=== PATIENT | female | born 1990 | race Caucasian/White ===

== ENCOUNTER 2017-01-21 17:54 | Emergency (ER) ==
[2017-01-21 19:26] VITALS: BP 120/81
--- NOTE | 2017-01-21 19:28 | PROVIDER DOCUMENTATION ---
HPI-General Adult - General Chief Complaint: Allergic Reaction Time Seen by Provider: 01/21/17 19:12 Source: patient Allergies/Adverse Reactions: Patient Allergies Allergy/AdvReac Type Severity Reaction Status Date / Time No Known Allergies Allergy Verified 01/21/17 19:15 Home Medications: Home Medication List Medication Instructions Recorded Confirmed Last Taken Type Ketorolac [Toradol] 10 mg PO Q6H PRN PRN #10 tablet 01/21/17 Unknown Rx Prednisone 20 mg PO BID #10 tablet 01/21/17 Unknown Rx - History of Present Illness -Gen Adult Nature of Presenting Problems: 26 year old female present to the ER with complaint of allergic reaction to bilateral hands. Pt states she wore gloves at work yesterday and noticed dermatitis to bilateral hands. Location of Pain/Injury: reports: hand(s) Onset/Duration: reports: last night Timing: reports: still present Associated Symptoms: reports: rash Review of Systems - Adult - REVIEW OF SYSTEMS - ADULT Constitutional: denies: chills, fever Eyes: reports: no symptoms reported Ears, Nose, Mouth & Throat: reports: no symptoms reported Cardiovascular: reports: no symptoms reported Respiratory: reports: no symptoms reported Gastrointestinal: reports: no symptoms reported Genitourinary: reports: no symptoms reported Musculoskeletal: reports: no symptoms reported Integumentary: reports: itching, rash Neurological: reports: no symptoms reported Psychiatric: reports: no symptoms reported Endocrine: reports: no symptoms reported Hematologic/Lymphatic: reports: no symptoms reported Allergic/Immunologic: reports: no symptoms reported All Other Systems: Reviewed and Negative Past History - Adult - PAST MEDICAL HISTORY-ADULT Review of Records: reports: Nursing Assessment Review, Medications Reviewed Major Childhood Illnesses: reports: denies history Cardiovascular: reports: denies history Respiratory: reports: denies history Gastrointestinal: reports: denies history Obstetrical/Gynecological: reports: denies history Genitourinary: reports: denies history Musculoskeletal: reports: other (herniated disk ) Neurological: reports: denies history Psychiatric: reports: psychiatric problems Endocrine/Immune: reports: denies history Other Conditions: reports: denies history - PRIOR SURGERIES/PROCEDURES Surgical/Procedure History: reports: hysterectomy, BTL, - IMMUNIZATION STATUS Childhood Immunizations: See Nurse Assessment Flu Vaccine: See Nurse Assessment - FAMILY HISTORY Family History: reviewed, not pertinent Physical Exam-General - CONSTITUTIONAL General Appearance: alert, no apparent distress - EYES Eyes: PERRL/EOMI, pink conjunctivae - HEAD, EARS, NOSE, MOUTH & THROAT HENMT: moist mucous membranes, normal ENT inspection - NECK Neck: supple, normal inspection - RESPIRATORY Respiratory: lungs clear, normal breath sounds - CARDIOVASCULAR Cardiovascular: normal peripheral pulses, regular rate, rhythm - MUSCULOSKELETAL Back Exam: no CVA tenderness, no vertebral tenderness Extremity: non-tender, normal gait - SKIN Integumentary: erythema, rash - NEUROLOGIC Neurologic: grossly normal, no motor/sensory deficits - PSYCHIATRIC Psych/Mental Status: normal mood/affect, normal thought content, normal thought process, oriented x 3 Departure - Departure Time of Disposition Order: 19:28 DIAGNOSIS: Allergic reaction Qualifiers: Encounter type: initial encounter Qualified Code(s): T78.40XA - Allergy, unspecified, initial encounter Disposition: HOME 01 Certified Medical Emergency: Emergent Condition: Stable Additional Instructions: ED Follow Up Instructions: You have been treated by a care provider in the Emergency Department. These instructions are being provided to you so you can have an understanding of how to care for yourself upon discharge. Upon discharge from the Emergency Department, you are responsible for making arrangements for follow-up care by a physician of your choice. Take all prescribed medications as directed. Return to the Emergency Department immediately for any new or worsening symptoms. You may call the Physician Referral phone number at [phone] to obtain a list of Physicians who are taking new patients. Prescriptions: Prednisone 20 mg PO BID #10 tablet Ketorolac [Toradol] 10 mg PO Q6H PRN PRN #10 tablet PRN Reason: Pain Referrals: Flores Canales MD [Primary Care Provider] - Forms: Return to School/Parent Work Instructions: Ketorolac tablets, Prednisone tablets Attestation - Scribe Verification/Attestation Scribe:: Veena Gee Acting as Scribe for:: Alvaro Jackson Scribe documention review:: This chart was documented by a scribe and accurately reflects the service the provider performed and the decisions made by the provider.
== END 2017-01-21 19:34 | disposition home or self-care (01) ==
LOC: P.ED 17:54
DX: T78.40XA Allergy, unspecified, initial encounter (principal); R21 Rash and other nonspecific skin eruption; L29.9 Pruritus, unspecified
CPT/HCPCS: 99282

== ENCOUNTER 2020-02-03 10:57 | Inpatient (IN) ==
--- NOTE | 2020-02-03 11:41 | EKG Report ---
Test Performed on : 02/03/2020 11:26:07 AM Test Reason : SOB Blood Pressure : / mmHG Vent. Rate : 065 BPM Atrial Rate : 065 BPM P-R Int : 138 ms QRS Dur : 102 ms QT Int : 390 ms P-R-T Axes : 022 074 037 degrees QTc Int : 405 ms Normal sinus rhythm. Incomplete right bundle branch block Borderline ECG When compared with ECG of 07-JUL-2009 14:40, No significant change was found Unconfirmed Result
[2020-02-03] MEDS ORDERED: VENTOLIN HFA INH ONE (11:45)
--- NOTE | 2020-02-03 12:14 | PROVIDER DOCUMENTATION ---
This chart was entered by Elba Soni Scribe, acting as scribe for Zaira Sexton CRNP. HPI-Respiratory General - General Chief Complaint: Shortness of Breath Stated Complaint: SOB, FATIGUE Time Seen by Provider: 02/03/20 11:05 Source: patient Allergies/Adverse Reactions: Patient Allergies Allergy/AdvReac Type Severity Reaction Status Date / Time No Known Allergies Allergy Verified 10/11/17 20:39 Home Medications: Home Medication List Medication Instructions Recorded Confirmed Last Taken Type Albuterol Sulfate Inhaler 2 puff INH Q4H PRN PRN #1 inhaler 08/08/17 Unknown Rx [Ventolin Hfa] Ciprofloxacin HCl [Cipro] 500 mg PO BID #20 tablet 08/08/17 Unknown Rx Methylprednisolone [Medrol Dosepak] 4 mg PO DIRECTED #1 package 08/08/17 Unknown Rx Cephalexin [Keflex] 500 mg PO BID #14 cap 10/12/17 Unknown Rx Ketorolac [Toradol] 10 mg PO Q6H PRN PRN #12 tab 10/12/17 Unknown Rx Ondansetron [Zofran] 4 mg PO Q6H PRN PRN #10 tab 10/12/17 Unknown Rx - History of Present Illness-Resp Nature of Presenting Problem: Patient is a 29yo F who presents with complaints of cough, intermittent SOB, sore throat, and nasal congestion x4 weeks. Reports she has been seen 3 other times for similar complaints, and was recently tested for COVID-19 and has not yet received results. States last night, she began experiencing nausea and diarrhea. Denies fever, exposure to known/suspected sick contacts, CP. Patient is able to speak in full sentences upon examination, without retractio ns/accessory muscle usage/splinting/increased WOB/stridor/signs of respiratory distress or compromise. RA O2 saturation 99%. Non-toxic in appearance. Quality of Pain: reports: aching (abd) Severity in ED: reports: mild Onset/Duration: reports: other (1 month) Timing: reports: intermittent Cough Quality/Degree: reports: mild, dry cough Episode Frequency: frequent episodes Current Respiratory Medication Therapy: Initiated see nurses note Modifying Factors: improves with: nothing Associated Symptoms: reports: cough, flu-like symptoms, nasal congestion, short ness of breath, sore throat, wheezing, other (nausea and diarrhea). denies: chest pain/soreness, dizziness, fever/chills, headache Similar Symptoms Previously?: Yes (tested Covid 19 1 week prior ) Recently seen or [place] another doctor[place] [place] Review of Systems - Adult - REVIEW OF SYSTEMS - ADULT Constitutional: denies: chills, fever Eyes: reports: no symptoms reported Ears, Nose, Mouth & Throat: reports: see HPI, sinus problem, throat pain Cardiovascular: denies: chest pain, palpitations Respiratory: reports: see HPI, cough, shortness of breath, wheezing Gastrointestinal: reports: see HPI, abdominal pain, diarrhea, nausea. denies: vomiting Genitourinary: reports: no symptoms reported Musculoskeletal: reports: no symptoms reported Integumentary: reports: no symptoms reported Neurological: denies: dizziness/vertigo, headache/migraines Psychiatric: reports: no symptoms reported Endocrine: reports: no symptoms reported Past History - Adult - PAST MEDICAL HISTORY-ADULT Review of Records: reports: Nursing Assessment Review, Medications Reviewed, Social history reviewed & non-contributory. Major Childhood Illnesses: reports: denies history Cardiovascular: reports: denies history Respiratory: reports: denies history Gastrointestinal: reports: denies history Obstetrical/Gynecological: reports: denies history Genitourinary: reports: denies history Musculoskeletal: reports: other (herniated disk ) Neurological: reports: denies history Psychiatric: reports: psychiatric problems Endocrine/Immune: reports: denies history Other Conditions: reports: denies history - PRIOR SURGERIES/PROCEDURES Surgical/Procedure History: reports: hysterectomy, BTL, - IMMUNIZATION STATUS Childhood Immunizations: See Nurse Assessment Flu Vaccine: See Nurse Assessment - FAMILY HISTORY Family History: reviewed, not pertinent - SOCIAL HISTORY Smoking: cigarettes, less than 1 pack/day Provider spent 3-5 mins advising pt. on dangers of tobacco.: Discussed manners to quit use, and f/u contacts for add'l counseling. Substance Use: denies Living Situation: family Physical Exam-General - PHYSICAL EXAM-ADULT Initial Vital Signs Reviewed: Yes - CONSTITUTIONAL General Appearance: appears well, alert, no apparent distress (nontoxic in appearance), obese (39.9kg BMI). negative: lethargic, slow to respond, obtunded - EYES Eyes: PERRL/EOMI, pink conjunctivae. negative: EOM palsy - HEAD, EARS, NOSE, MOUTH & THROAT HENMT: normocephalic/atraumatic, moist mucous membranes, normal ENT inspection, TMs normal, pharyngeal erythema. negative: angioedema - NECK Neck: full range of motion, supple, normal inspection - RESPIRATORY Respiratory: chest non-tender, no pleuratic chest pain, no respiratory distress, no accessory muscle use, wheezing. negative: crackles, rales, rhonchi, stridor, retractions, splinting, decreased rate, increased rate - CARDIOVASCULAR Cardiovascular: regular rate, rhythm, no gallop - CHEST (BREASTS) Chest/Breast: deferred - GASTROINTESTINAL (ABDOMEN) Abdominal Exam: normal bowel sounds, non tender, soft, other (c/o nausea). negative: rigid, rebound, tenderness - GENITOURINARY Female Genitalia/Pelvic Exam: deferred Rectal Exam: deferred Hemoccult Exam: deferred - MUSCULOSKELETAL Back Exam: normal inspection Extremity: normal range of motion, non-tender, normal gait, normal inspection - SKIN Integumentary: normal color, warm/dry. negative: cyanosis, jaundice, mottled, pallor - NEUROLOGIC Neurologic: grossly normal. negative: aphasia, EOM palsy - PSYCHIATRIC Psych/Mental Status: normal mood/affect, normal thought content, normal thought process, oriented x 3 Progress - PLAN OF CARE/RESULTS Progress/Plan/Lab Results: Vital Signs - 8 hr 02/03/20 11:18 02/03/20 11:54 02/03/20 14:02 Temperature 98.3 F 98.3 F Pulse Rate 88 65 Respiratory Rate 20 20 Blood Pressure 129/88 O2 Sat by Pulse Oximetry 99 99 02/03/20 14:17 Temperature Pulse Rate 65 Respiratory Rate 12 Blood Pressure O2 Sat by Pulse Oximetry 100 Bedside Urine ED: Urine Bedside Start: 02/03/20 11:06 Freq: ORDERED Status: Inactive Protocol: Activity Type Activity Date Activity User E-Sign Co-Sign Detail Recorded Client Recorded Date Recorded By Edit Status 02/03/20 12:41 JENNACOX Active=>Inactive [id number] 02/03/20 12:41 JENNACOX Laboratory Results - last 24 hr 02/03/20 02/03/20 02/03/20 12:17 12:17 12:17 WBC RBC Hgb Hct MCV MCH MCHC RDW Std Deviation Plt Count MPV Immature Gran % (Auto) Neut % (Auto) Lymph % (Auto) Cottle % (Auto) Eos % (Auto) Baso % (Auto) Immature Gran # (Auto) Neut # (Auto) Lymph # (Auto) Cottle # (Auto) Eos # (Auto) Baso # (Auto) D-Dimer, Quantitative Sodium 138 Potassium 4.7 Chloride 102 Carbon Dioxide 22 L Anion Gap 14 BUN 9 Creatinine 0.6 Estimated GFR/1.73 m2 > 60 BUN/Creatinine Ratio 15 Glucose 88 Calculated Osmolality 274 Calcium 8.9 Total Bilirubin 0.20 AST 19 ALT 6 L Alkaline Phosphatase 54 Creatine Kinase 65 Troponin T High Sens < 6 Ell-F-Esdxjjmssri Pept 116 Total Protein 6.9 Albumin 4.3 Globulin 3.0 Albumin/Globulin Ratio 2.0 Lipase Influenza A (Rapid) Influenza B (Rapid) Group A Strep Rapid 02/03/20 02/03/20 02/03/20 12:17 12:17 12:17 WBC 9.09 RBC 4.84 Hgb 14.7 Hct 44.3 MCV 91.5 MCH 30.4 MCHC 33.2 RDW Std Deviation 13.8 Plt Count 215 MPV 11.2 H Immature Gran % (Auto) 0.2 Neut % (Auto) 69.2 Lymph % (Auto) 22.6 Cottle % (Auto) 5.6 Eos % (Auto) 2.2 Baso % (Auto) 0.2 Immature Gran # (Auto) 0.02 Neut # (Auto) 6.29 Lymph # (Auto) 2.05 Cottle # (Auto) 0.51 Eos # (Auto) 0.20 Baso # (Auto) 0.02 D-Dimer, Quantitative 0.32 Sodium Potassium Chloride Carbon Dioxide Anion Gap BUN Creatinine Estimated GFR/1.73 m2 BUN/Creatinine Ratio Glucose Calculated Osmolality Calcium Total Bilirubin AST ALT Alkaline Phosphatase Creatine Kinase Troponin T High Sens Baj-E-Iuwsfqlilno Pept Total Protein Albumin Globulin Albumin/Globulin Ratio Lipase Influenza A (Rapid) Influenza B (Rapid) Group A Strep Rapid NEGATIVE 02/03/20 02/03/20 12:17 12:17 WBC RBC Hgb Hct MCV MCH MCHC RDW Std Deviation Plt Count MPV Immature Gran % (Auto) Neut % (Auto) Lymph % (Auto) Cottle % (Auto) Eos % (Auto) Baso % (Auto) Immature Gran # (Auto) Neut # (Auto) Lymph # (Auto) Cottle # (Auto) Eos # (Auto) Baso # (Auto) D-Dimer, Quantitative Sodium Potassium Chloride Carbon Dioxide Anion Gap BUN Creatinine Estimated GFR/1.73 m2 BUN/Creatinine Ratio Glucose Calculated Osmolality Calcium Total Bilirubin AST ALT Alkaline Phosphatase Creatine Kinase Troponin T High Sens Kqm-J-Xukjgukdznd Pept Total Protein Albumin Globulin Albumin/Globulin Ratio Lipase 18 Influenza A (Rapid) NEGATIVE Influenza B (Rapid) NEGATIVE Group A Strep Rapid Orders Category Date Time Status Isolation Precautions Setup NOW Care 02/03/20 12:46 Active Nursing- Obtain EKG ONCE Care 02/03/20 11:05 Active Oxygen Therapy- ED Nursing DIRECTED Care 02/03/20 13:53 Active Saline Loc NOW Care 02/03/20 11:05 Active CHEST-PORTABLE [RAD] Stat Exams 02/03/20 12:46 Completed BLOOD CULTURE [BLDCUL] Stat Lab 02/03/20 14:45 Ordered CBC WITH ELECTRONIC DIFF [HEME] Stat Lab 02/03/20 12:17 Completed CK PROFILE [SP CHEM] Stat Lab 02/03/20 12:17 Completed COMPREHENSIVE METABOLIC PANEL [CHEM] Stat Lab 02/03/20 12:17 Completed D-DIMER [COAG] Stat Lab 02/03/20 12:[address] Stat Lab 02/03/20 12:[address] Stat Lab 02/03/20 12:17 Completed LIPASE [CHEM] Stat Lab 02/03/20 12:17 Completed PRO B-NATRIURETIC PEPTIDE Stat Lab 02/03/20 12:17 Completed TROPONIN T HIGH SENSITIVITY Stat Lab 02/03/20 12:17 Completed Albuterol Sulfate Inhaler [Ventolin Hfa] Med 02/03/20 11:45 Discontinued 4 puff INH NOW ONE Azithromycin 500 mg/Ns [Zithromax 500 mg/Ns] Med 02/03/20 13:53 Discontinued 500 mg in 250 ml IV NOW Dexamethasone [Decadron] Med 02/03/20 13:19 Discontinued 4 mg IV NOW ONE MDI Treatments Stat Oth 02/03/20 11:45 Active EKG [EKG] Stat Ther 02/03/20 11:05 Draft 1350: Patient's O2 saturation 99% on RA, however patient is exhibiting signs of increased WOB. No evidence of tachypnea, however in tripod position. Will place on supplemental O2 and page hospitalist for admission. Lab results, imaging results, plan of care, and need for admission discussed with patient who agrees with and verbalizes understanding. Result Diagrams: 02/03/20 12:17 02/03/20 12:17 - REASSESSMENT Reassessment #1 Time Reassessed: 12:00 Status: improving Reassessment Comment: Mild improvement in SOB post MDI Reassessment #2 Time Reassessed: 13:50 Status: worsening Reassessment Comment: Increasing SOB/WOB; will page hospitalist for admission - EKG 1 Time of EKG reading by physician:: 11:58 EKG Read and Signed by:: Liseth Gale EKG Interpretation (*Must complete 3 of following elements*): Abnormal (Borderline) Rate: 65 Rhythm: NSR [place]: normal QRS: RBB (incomplete) TN Interval: normal ST Wave: normal Prior EKG Comparison: unchanged from prior (07/07/2009) - XRAY 1 XRAY: Bilateral XRAY Study: Chest Impression: See EMR Report ([facility] - [address] [place] [address] [address] [place] [id number] [facility] - [address] [place] [address] Department of Imaging Patient: JAMES NAGELADM Date: 02/03/20MR#: [id number] : 1990ADM Status: REG ERAcct#: [id number] Age/Sex: 29/FRoom/Bed: Loc: P.ED Ordering Physician: Zaira Sexton Family Physician: None,PCP Reason for Procedure: SOB; cough Signed EXAM: CHEST-PORTABLE HISTORY: SOB; cough TECHNIQUE: Single view COMPARISON: 10/11/2017 FINDINGS: The lungs are well expanded. The heart is not enlarged. The vessels are not distended. There are no infiltrates. No effusion identified. IMPRESSION: No pneumonia Electronically signed by Jose Juan Acharya 02/03/2020 1:43 PM 02/03/20 1343 Interpreting Physician: Jose Juan Acharya MD Dictated Date/Time: 02/03/20 1342 cc: Zaira Sexton; None,PCP) - CONSULTS/PCP/HOSPITALIST Notification #1 *Consult/PCP/Hospitalist*: Dr. Bello, Hospitalist Time Discussed: 14:07 Reason/Comments: SOB; respiratory distress; flu-like symptoms Consult Disposition: Will see in ED, Admit Departure - Departure Date of Disposition Decision: 02/03/20 Time of Disposition Decision: 13:56 DIAGNOSIS: Shortness of breath, Respiratory distress, Flu-like symptoms, History of lupus Disposition: ADMITTED INPATIENT 09 Certified Medical Emergency: Emergent Condition: Stable Referrals and Follow-Ups: None,PCP [Primary Care Provider] - - Critical Care Note This patient required my direct & personal management of CC.: No Attestation - Physician/ JASON Attestation Patient care was provided by Advanced Practice Provider:: Yes Advanced Practice Provider:: Zaira Sexton Advanced Practice Provider documentation review:: The Mid-level provider documentation, treatment plan and medical decision making was reviewed by the physician who agrees with all treatment and medical decision making by the MLP. The physician spent face to face time with patient:: No Advanced Practice Provider documentation review:: Supervising physician onsite and consulted in the evaluation and care of this patient. The physician did not have a face to face encounter with the patient. This chart was documented by the indicated scribe, (Elba Soni Scribe) and accurately reflects the services I performed and decisions made by me, Zaira Sexton CRNP, as attested by the provider's signature.
[2020-02-03 12:41] LABS: AGAP 14; ALBUMIN 4.3 g/dL (3.5-5.0); ALKALINE PHOSPHATASE 54 U/L (32-104); BUN 9 mg/dL (8-22); CALCIUM 8.9 mg/dL (8.8-10.2); CHLORIDE 102 mmol/L (98-107); CK PROFILE 65 U/L (24-173); COSMO 274; CREATININE 0.6 mg/dL (0.5-0.9); ESTIMATED GFR > 60; GLUCOSE 88 mg/dL (70-104); GOT 19 U/L (10-30); GPT 6 U/L (10-36); POTASSIUM 4.7 mmol/L (3.5-5.1); SODIUM 138 mmol/L (136-145); TCO2 22 mmol/L (25-35); TOTAL PROTEIN 6.9 g/dL (6.3-8.3)
[2020-02-03 12:46] LABS: INFLUENZA A NEGATIVE (NEGATIVE); INFLUENZA B NEGATIVE (NEGATIVE)
[2020-02-03 12:47] LABS: BASO# 0.02 X1000 (0.0-0.2); BASO% 0.2 % (0.0-0.8); EOS% 2.2 % (0.0-10.0); HEMATOCRIT 44.3 % (37.0-47.0); HEMOGLOBIN 14.7 g/dL (12.0-16.0); IMM GRAN# 0.02 X1000 (0.0-0.04); IMM GRAN% 0.2 % (0.0-0.5); LYMPH# 2.05 X1000 (1.2-3.4); LYMPH% 22.6 % (20.5-51.1); MCH 30.4 PG (27-31); MCHC 33.2 g/dL (33-37); MCV 91.5 FL (81-99); MONO# 0.51 X1000 (0.11-0.59); MONO% 5.6 % (1.7-9.3); MPV 11.2 FL (7.4-10.4); NEUT# 6.29 X1000 (1.4-6.5); NEUT% 69.2 % (42.2-75.2); PLT 215 X1000 (130-400); RBC 4.84 XMIL (4.2-5.4); RDW 13.8 % (11.5-14.5); WBC 9.09 X1000 (4.8-10.8)
[2020-02-03] MEDS ORDERED: DECADRON IV ONE (13:19)
--- NOTE | 2020-02-03 13:45 | Diag Imaging Result Doc PS360 ---
EXAM: CHEST-PORTABLE HISTORY: SOB; cough TECHNIQUE: Single view COMPARISON: 10/11/2017 FINDINGS: The lungs are well expanded. The heart is not enlarged. The vessels are not distended. There are no infiltrates. No effusion identified. IMPRESSION: No pneumonia Electronically signed by Jose Juan Acharya 02/03/2020 1:43 PM
[2020-02-03] MEDS ORDERED: ZITHROMAX 500 MG/NS 500 MG/250 ML IVPB IV ONE (13:53)
[2020-02-03] MEDS ORDERED: ZITHROMAX 500 MG/NS 500 MG/250 ML IVPB ONE (14:51)
[2020-02-03] MEDS ORDERED: TYLENOL PO PRN (15:07)
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
[2020-02-03] MEDS: SOLU-MEDROL IV SCH (17:36)
[2020-02-03] MEDS: LEVAQUIN 750 MG/D5W 750 MG/150 ML IVPB IV SCH (17:38)
[2020-02-03] MEDS: TORADOL IV SCH ×2 (17:40→20:59)
[2020-02-03] MEDS: LOVENOX SUBQ SCH (17:50)
[2020-02-03] MEDS: ZOFRAN IV PRN (19:07)
[2020-02-03] MEDS: NS 1,000 ML IV SCH (19:27)
[2020-02-03] MEDS ORDERED: TESSALON PO PRN (19:47)
[2020-02-03] MEDS: VENTOLIN HFA INH PRN ×2 (20:50→23:25)
--- NOTE | 2020-02-04 00:19 | ECHO REPORT ---
ORDER DATE: 02/03/2020 MEASUREMENTS: Septal thickness 1.2, left ventricular internal diameter in diastole 5.1, posterior wall thickness 1.0, left ventricular internal diameter in systole 3.4. Aortic root 2.9 left atrium 3.5. SUMMARY: 1. Limited study performed. Study is technically difficult due to limited acoustic window quality. 2. Aortic valve is trileaflet and opens normally on 2-dimensional images. Doppler of aortic valve not formed. Mitral and tricuspid valves are without gross structural abnormality. Pulmonic valve is not well visualized. Aortic root is normal size. 3. Normal left ventricular dimension suggested on 2-dimensional images. Estimated left ventricular ejection fraction appears to be at least 60%. No regional wall motion abnormality can be appreciated. Left atrium, right atrium, right ventricle are normal in size with normal right ventricular systolic function. 4. No pericardial effusion. 5. Appearance of inferior vena cava suggests normal central venous pressure. CONCLUSIONS: 1. Limited study performed. Acoustic window quality is difficult. 2. No significant valvular abnormality evident. 3. Normal left ventricular systolic function without wall motion abnormality evident. cc: MD Ulises Reyes MD
[2020-02-04] MEDS: SOLU-MEDROL IV SCH ×3 (00:28→15:26)
[2020-02-04] MEDS: TORADOL IV SCH ×4 (04:14→22:00)
[2020-02-04] MEDS: PRILOSEC PO SCH (06:03)
[2020-02-04 06:49] LABS: AGAP 11; BUN 13 mg/dL (8-22); CALCIUM 8.7 mg/dL (8.8-10.2); CHLORIDE 102 mmol/L (98-107); COSMO 275; CREATININE 0.6 mg/dL (0.5-0.9); ESTIMATED GFR > 60; GLUCOSE 150 mg/dL (70-104); POTASSIUM 4.5 mmol/L (3.5-5.1); SODIUM 136 mmol/L (136-145); TCO2 23 mmol/L (25-35)
[2020-02-04 06:54] LABS: HEMATOCRIT 43.7 % (37.0-47.0); HEMOGLOBIN 14.3 g/dL (12.0-16.0); IMM GRAN# 0.03 X1000 (0.0-0.04); IMM GRAN% 0.2 % (0.0-0.5); LYMPH% 5.4 % (20.5-51.1); MCHC 32.7 g/dL (33-37); MCV 91.8 FL (81-99); MONO# 0.14 X1000 (0.11-0.59); MONO% 0.9 % (1.7-9.3); MPV 11.3 FL (7.4-10.4); NEUT% 93.5 % (42.2-75.2); PLT 216 X1000 (130-400); RBC 4.76 XMIL (4.2-5.4); RDW 13.9 % (11.5-14.5); WBC 14.77 X1000 (4.8-10.8)
[2020-02-04] MEDS: VENTOLIN HFA INH PRN ×2 (08:00→20:00)
[2020-02-04 08:01] LABS: LYMPHS 4 % (21-51); MONO 1 % (1-9); SEGS 95 % (42-75)
[2020-02-04] MEDS: NS 1,000 ML IV SCH (08:51)
[2020-02-04] MEDS ORDERED: FLU VACCINE IM ONE (09:00)
[2020-02-04] MEDS ORDERED: PNEUMOVAX 23 IM ONE (09:00)
[2020-02-04] MEDS: LOVENOX SUBQ SCH (15:26)
[2020-02-04] MEDS: LEVAQUIN 750 MG/D5W 750 MG/150 ML IVPB IV SCH (15:26)
[2020-02-04] MEDS: ZOFRAN IV PRN (18:16)
--- NOTE | 2020-02-04 19:28 | PROGRESS NOTE ---
DATE: 02/04/2020 SUBJECTIVE: The patient notes she is feeling a little bit better. She is still having cough and congestion. Denies any fevers. OBJECTIVE: Temperature 98 degrees, pulse 69, respiratory rate 18, BP 111/52.General: The patient is awake, pleasant, in mild distress. HEENT: Normocephalic. Neck supple. Cardiovascular: Regular rate. Chest clear. Abdomen soft. Extremities: Moves all extremities. ASSESSMENT: 1. Acute respiratory failure. 2. Lupus. 3. Acute hypoxic respiratory failure. PLAN: The patient is on Levaquin and Toradol. We have added Solu-Medrol. She feels tremendously better after Solu-Medrol yesterday. We will continue today. Hopefully home over the next day or 2 if she continues to improve. Her COVID-19 is reported currently as [*] cc: Tho Miller MD
[2020-02-05] MEDS: SOLU-MEDROL IV SCH (00:50)
[2020-02-05] MEDS: NS 1,000 ML IV SCH (00:50)
[2020-02-05] MEDS: VENTOLIN HFA INH PRN (03:21)
[2020-02-05 04:17] VITALS: BP 128/73
[2020-02-05] MEDS: TORADOL IV SCH ×2 (04:23→08:37)
[2020-02-05 06:04] LABS: HEMATOCRIT 40.6 % (37.0-47.0); HEMOGLOBIN 12.9 g/dL (12.0-16.0); IMM GRAN# 0.04 X1000 (0.0-0.04); IMM GRAN% 0.2 % (0.0-0.5); LYMPH# 0.97 X1000 (1.2-3.4); LYMPH% 5.6 % (20.5-51.1); MCH 29.8 PG (27-31); MCHC 31.8 g/dL (33-37); MCV 93.8 FL (81-99); MONO# 0.38 X1000 (0.11-0.59); MONO% 2.2 % (1.7-9.3); MPV 11.3 FL (7.4-10.4); NEUT# 15.99 X1000 (1.4-6.5); PLT 220 X1000 (130-400); RBC 4.33 XMIL (4.2-5.4); RDW 14.4 % (11.5-14.5); WBC 17.38 X1000 (4.8-10.8)
[2020-02-05 06:09] LABS: LYMPHS 6 % (21-51); MONO 2 % (1-9); SEGS 92 % (42-75)
[2020-02-05] MEDS: PRILOSEC PO SCH (06:15)
[2020-02-05 06:18] LABS: AGAP 11; BUN 15 mg/dL (8-22); CALCIUM 8.6 mg/dL (8.8-10.2); CHLORIDE 103 mmol/L (98-107); COSMO 275; CREATININE 0.7 mg/dL (0.5-0.9); ESTIMATED GFR > 60; GLUCOSE 137 mg/dL (70-104); POTASSIUM 4.5 mmol/L (3.5-5.1); SODIUM 136 mmol/L (136-145); TCO2 22 mmol/L (25-35)
[2020-02-05] MEDS ORDERED: SOLU-MEDROL IV SCH (12:00)
--- NOTE | 2020-02-05 22:22 | DISCHARGE SUMMARY ---
ADMISSION DATE: 02/03/2020 DISCHARGE DATE: 02/05/2020 DISCHARGE DIAGNOSES: 1. Acute respiratory hypoxic failure, resolved. 2. Leukocytosis secondary to steroids. 3. Lupus. 4. Coronavirus disease 2019 negative. CONSULTATIONS: None. PROCEDURES: None. BRIEF HOSPITAL COURSE: The patient was admitted to the hospital, treated in the usual fashion, placed on oxygen, breathing treatments. She did receive steroids secondary to her breathing issues as well as her potential lupus. On discharge, she is awake, alert. She is in no distress. She is ambulating. She notes that her breathing is much improved. In fact, states that she is completely back to her baseline and would like to discharge home. DISPOSITION: Patient will be discharged home. She will continue Levaquin and Medrol Dosepak at home. She will follow up outpatient with primary care of her choice. No further changes made on her diet or activity otherwise. TIME SPENT: Greater than 30 minutes was spent in total care. cc: Tho Miller MD
== END 2020-02-05 10:02 | disposition home or self-care (01) | DRG 189 ==
LOC: P.ED 10:57 → P.MEDSURG 10:58 → SUATTDRO 10:58
PROVIDERS: ATTEND Family Medicine

== ENCOUNTER 2020-02-06 12:02 | Observation (INO) ==
[2020-02-06] MEDS ORDERED: PEPCID IV ONE (12:13)
[2020-02-06] MEDS ORDERED: SODIUM CHLORIDE 0.9% INJ ONE (12:13)
[2020-02-06] MEDS ORDERED: SOLU-MEDROL IV ONE (12:13)
[2020-02-06] MEDS ORDERED: BENADRYL IV ONE ×2 (12:13→13:39)
--- NOTE | 2020-02-06 12:27 | PROVIDER DOCUMENTATION ---
HPI-Rash/Wound/ReCheck - General Chief Complaint: Allergic Reaction Stated Complaint: HIVES Time Seen by Provider: 02/06/20 12:11 Source: patient Allergies/Adverse Reactions: Allergies Allergy/AdvReac Type Severity Reaction Status Date / Time No Known Allergies Allergy Verified 10/11/17 20:39 Home Medications: Home Medication List Medication Instructions Recorded Confirmed Last Taken Type Albuterol Sulfate Inhaler 2 puff INH Q4H PRN PRN #1 inhaler 02/05/20 Unknown Rx [Ventolin Hfa] Benzonatate [Tessalon] 100 mg PO TID PRN PRN #30 cap 02/05/20 Unknown Rx Levofloxacin [Levaquin] 500 mg PO DAILY #5 tab 02/05/20 Unknown Rx Methylprednisolone [Medrol Dosepak] 4 mg PO DIRECTED #1 pkg 02/05/20 Unknown Rx - History of Present Illness-Dermatology Nature of Presenting Problem: 29 YOF with PMH of lupus and recently hospitalized for acute resp failure dc'd yesterday home on levaquin PO which she was on in the hospital. She presents today with c/o allergic reaction, she has generalized red raised rash to her arms, torso, legs. Reports he lips were swollen last night and she took benadryl for the symptoms. She denies SOB, wheezing or trouble breathing Location: reports: upper extremity, lower extremity, torso Quality: reports: itchy Severity: reports: moderate Onset/Duration: reports: last night Timing: reports: still present Context/Associated Symptoms: reports: rash, other (recent abx) Identifiable cause?: No Modifying Factors: improves with: antihistamine Locality of Occurance: Home Similar Symptoms Previously?: No Recently seen or treated by another doctor?: No Review of Systems - Adult - REVIEW OF SYSTEMS - ADULT Constitutional: reports: no symptoms reported. denies: chills, fever Eyes: reports: no symptoms reported. denies: decreased vision, blurred vision, double vision Ears, Nose, Mouth & Throat: reports: no symptoms reported. denies: epistaxis, sinus problem, mouth/dental pain, mouth swelling Cardiovascular: reports: no symptoms reported. denies: chest pain, irregular heart rate, palpitations Respiratory: reports: see HPI, cough (has been treate). denies: shortness of breath Gastrointestinal: reports: no symptoms reported. denies: abdominal pain, diarrhea, nausea, vomiting Genitourinary: reports: no symptoms reported. denies: flank pain, frequent UTI 's, incontinence Musculoskeletal: reports: no symptoms reported. denies: see HPI, bone pain, back pain, frequent leg cramps, joint pain, joint swelling, muscle aches, muscle weakness, neck pain, other Integumentary: reports: hives, rash. denies: no symptoms reported, see HPI, hair loss, itching, mole changes, nail changes, skin sores/ulcer, skin thickening, other Neurological: reports: no symptoms reported. denies: see HPI, ataxia, dizziness/vertigo, headache/migraines, loss of balance, numbness, paresthesia, seizure, slurred speech, syncope, tremors, other Psychiatric: reports: no symptoms reported. denies: see HPI, anxiety, anti- depressant use, alcohol/drug dependence, depression, emotional problems, insomnia, panic attacks, suicidal thoughts, other Endocrine: reports: no symptoms reported. denies: see HPI, change in skin pigment, excessive sweating, goiter, cold intolerance, heat intolerance, increased hunger, increased thirst, polyuria, other Hematologic/Lymphatic: reports: no symptoms reported. denies: see HPI, blood clots, easy bruising, low blood count, lymphedema, prolonged bleeding, swollen lymph nodes, transfusions, other Allergic/Immunologic: reports: no symptoms reported. denies: see HPI, allergic reactions, allergic rhinitis, asthma, eczema, food allergy, frequent infections, hay fever, hives, positive PPD, urticaria, other Past History - Adult - PAST MEDICAL HISTORY-ADULT Review of Records: reports: Nursing Assessment Review, Social history reviewed & non-contributory. Major Childhood Illnesses: reports: denies history Cardiovascular: reports: denies history Respiratory: reports: denies history Gastrointestinal: reports: denies history Obstetrical/Gynecological: reports: denies history Genitourinary: reports: denies history Musculoskeletal: reports: other (herniated disk ) Neurological: reports: denies history Psychiatric: reports: psychiatric problems Endocrine/Immune: reports: denies history Other Conditions: reports: denies history - PRIOR SURGERIES/PROCEDURES Surgical/Procedure History: reports: hysterectomy, BTL, - IMMUNIZATION STATUS Childhood Immunizations: See Nurse Assessment Flu Vaccine: See Nurse Assessment - FAMILY HISTORY Family History: reviewed, not pertinent Physical Exam-General - PHYSICAL EXAM-ADULT Initial Vital Signs Reviewed: Yes - CONSTITUTIONAL General Appearance: appears well, alert, no apparent distress - EYES Eyes: PERRL/EOMI, pink conjunctivae - HEAD, EARS, NOSE, MOUTH & THROAT HENMT: normocephalic/atraumatic, moist mucous membranes, normal ENT inspection - NECK Neck: non-tender, full range of motion, supple - RESPIRATORY Respiratory: chest non-tender, lungs clear, normal breath sounds, no pleuratic chest pain, no accessory muscle use, respiratory distress - CARDIOVASCULAR Cardiovascular: normal peripheral pulses, regular rate, rhythm, no edema, no gallop, no JVD, no murmur - GASTROINTESTINAL (ABDOMEN) Abdominal Exam: normal bowel sounds, non tender, soft, no organomegaly, no pulsatile mass - LYMPHATIC Lymphatic: no adenopathy - MUSCULOSKELETAL Back Exam: normal inspection, no CVA tenderness, no vertebral tenderness Extremity: normal range of motion, non-tender, normal gait, normal inspection Peripheral Pulses: radial (R): 2+, radial (L): 2+ - SKIN Integumentary: normal turgor, warm/dry, rash (arms, legs, torso) - NEUROLOGIC Neurologic: grossly normal. negative: aphasia, facial droop, focal weakness, motor weakness - PSYCHIATRIC Psych/Mental Status: normal mood/affect, oriented x 3 Progress - PLAN OF CARE/RESULTS Progress/Plan/Lab Results: Vital Signs - 8 hr 02/06/20 12:10 Temperature 97.6 F Pulse Rate 98 H Respiratory Rate 18 Blood Pressure 146/90 O2 Sat by Pulse Oximetry 97 Orders Category Date Time Status Diphenhydramine [Benadryl] Med 02/06/20 12:13 Discontinued 25 mg IV NOW ONE Diphenhydramine [Benadryl] Med 02/06/20 13:39 Discontinued 25 mg IV NOW ONE Famotidine [Pepcid] Med 02/06/20 12:13 Discontinued 20 mg IV NOW ONE Methylprednisolone Sod Succ [Solu-Medrol] Med 02/06/20 12:13 Discontinued 125 mg IV NOW ONE Sodium Chloride 0.9% Med 02/06/20 12:13 Discontinued 5 - 10 ml INJ NOW ONE - REASSESSMENT Reassessment #1 Time Reassessed: 12:49 Status: improving (hives have imrpoved on BUE, torso and BLE. Rash remains present but has improved) Reassessment #2 Time Reassessed: 13:59 Status: unchanged (rash remains present) - CONSULTS/PCP/HOSPITALIST Notification #1 *Consult/PCP/Hospitalist*: Dr. Newsome Time Discussed: 14:05 Consult Disposition: Admit Departure - Departure Date of Disposition Decision: 02/06/20 Time of Disposition Decision: 14:05 DIAGNOSIS: Allergic reaction Disposition: ADMITTED INPATIENT 09 Certified Medical Emergency: Emergent Condition: Stable Referrals and Follow-Ups: None,PCP [Primary Care Provider] - - Critical Care Note This patient required my direct & personal management of CC.: No Attestation - Physician/ JASON Attestation Patient care was provided by Advanced Practice Provider:: Yes Advanced Practice Provider:: Trena Go Advanced Practice Provider documentation review:: The Mid-level provider doc umentation, treatment plan and medical decision making was reviewed by the physician who agrees with all treatment and medical decision making by the MLP. The physician spent face to face time with patient:: Yes (Dr. Sow) Advanced Practice Provider documentation review:: Supervising physician onsite and consulted in the evaluation and care of this patient. The physician did have a face to face encounter with the patient.
[2020-02-06] MEDS ORDERED: TYLENOL PO PRN (15:19)
[2020-02-06] MEDS ORDERED: ZOFRAN IV PRN (15:19)
[2020-02-06] MEDS ORDERED: BENADRYL IV PRN (15:20)
[2020-02-06] MEDS ORDERED: NS 1,000 ML IV SCH (15:30)
[2020-02-06] MEDS: SOLU-MEDROL IV SCH (20:17)
--- NOTE | 2020-02-07 01:33 | HISTORY AND PHYSICAL ---
CHIEF COMPLAINT: Allergic reaction. HISTORY OF PRESENT ILLNESS: Patient is a very pleasant 29-year-old female who has a history of lupus. She was just recently admitted to the hospital. In fact discharged yesterday due to respiratory failure with hypoxia. She was on Levaquin IV in the hospital. Was switched to Levaquin p.o. yesterday. Last night, she noted that she was having some leg swelling, lip swelling and a rash. Notes that it got worse. Denies any shortness of breath, wheezing, or trouble breathing. She did finally come to the ER today after noting that Benadryl was not helping. ALLERGIES: No known drug allergies. MEDICATIONS: Ventolin, Tessalon, Levaquin p.o., Medrol Dosepak. REVIEW OF SYSTEMS: As noted above, patient recently was in the hospital with cough, shortness of breath. She tested negative for COVID-19. All of those symptoms resolved. After going home she started having some itching. She had been on Levaquin for 2 to 3 days prior to discharge, but had been IV. Denies any shortness of breath, headaches, blurred vision, change in vision. Denies any focalized numbness, tingling, weakness in her extremities. Denies dysuria, urinary frequency, urgency. Does have skin rash with urticaria. PAST MEDICAL HISTORY: Lupus, recent acute hypoxic respiratory failure, resolved. SURGICAL HISTORY: BTL, . FAMILY HISTORY: Noncontributory. SOCIAL HISTORY: She is . Has young children. Does not smoke or drink. PHYSICAL EXAMINATION: VITAL SIGNS: Reviewed. Temperature 97.6 degrees, pulse 98, respiratory 18, BP 146/90, saturating 97% on room air. GENERAL: Patient is awake, pleasant, in no distress. HEENT: Normocephalic. NECK: Supple. CARDIOVASCULAR: Regular rate. CHEST: Clear. ABDOMEN: Soft. EXTREMITIES: Moves all extremities. NEUROLOGIC: No focal changes. SKIN: Warm, dry. She does have urticaria throughout. She has no facial swelling currently, this has resolved. ASSESSMENT: 1. Acute allergic reaction to Levaquin. 2. Lupus. PLAN: We are going to admit the patient to the hospital. Continue Solu-Medrol overnight, Benadryl as needed. We will follow. We expect that she will discharge home in the morning. cc: Tho Miller MD
[2020-02-07] MEDS: SOLU-MEDROL IV SCH (04:29)
[2020-02-07 04:51] VITALS: BP 120/68
--- NOTE | 2020-02-08 05:38 | DISCHARGE SUMMARY ---
ADMISSION DATE: 02/06/2020 DISCHARGE DATE: 02/07/2020 DISCHARGE DIAGNOSES: 1. Acute allergic reaction to Levaquin with facial swelling and rash, resolved. 2. Lupus. CONSULTATIONS: None. PROCEDURES: None. BRIEF HOSPITAL COURSE: Patient is a 29-year-old female who presented to the hospital with acute rash, swelling of her face. Thankfully, this has completely resolved. Currently, she is awake, alert. She is in no distress. Has tolerated diet and we will discharge her home. DISPOSITION: Patient will be discharged home. No changes made on her medications, diet, or activity. We did give her prescription for Omnicef and discussed currently she is afebrile. Lungs are clear. If those symptoms start back then she would start Omnicef. Currently, given her major reaction to Levaquin we will leave off antibiotics. cc: Tho Miller MD
== END 2020-02-07 11:04 | disposition home or self-care (01) ==
LOC: P.MEDSURG 12:02 → P.ED 12:02
PROVIDERS: ATTEND Family Medicine